=== PATIENT | female | born 1980 | race Two or more races ===

== ENCOUNTER 2016-10-25 20:49 | Inpatient (IN) | payer BC, OTHER ==
[2016-10-25 21:48] VITALS: BMI 27.6
[2016-10-25] MEDS: Lactated Ringer's 1,000 ML IV SCH ×2 (22:15→23:15)
[2016-10-25 22:31] LABS: BASO % 0.3 % (0.0-2.0); EOS % 0.2 % (0.0-4.0); HEMOGLOBIN 13.2 g/dL (12.0-16.0); LYMPH # 2.3 K/uL (1.0-4.3); LYMPH % 14.2 % (20.0-40.0); MEAN CELL VOLUME 90.3 fl (81.0-99.0); MEAN CORPUSCULAR HEMOGLOBIN 29.8 pg (27.0-31.0); MEAN PLATELET VOLUME 8.8 fl (7.2-11.7); MONO # 1.4 K/uL (0.0-0.8); MONO % 8.9 % (0.0-10.0); NEUT # 12.4 K/uL (1.8-7.0); NEUT % 76.4 % (50.0-75.0); RBC 4.43 Mil/uL (3.80-5.20); WHITE BLOOD COUNT 16.3 K/uL (4.8-10.8)
[2016-10-25] MEDS ORDERED: Fentanyl/Bupivacaine HCl 250 ML EPI ONE (22:38)
[2016-10-26] MEDS ORDERED: Lactated Ringer's 1,000 ML IV SCH (00:15)
[2016-10-26] MEDS ORDERED: Lidocaine 1% Inj (20ml) ONE (01:51)
[2016-10-26] MEDS ORDERED: Oxytocin 20 units in LR 2,000 ML IV ONE (01:52)
--- NOTE | 2016-10-26 04:50 | OBADHP ---
Datetime: 10/26/2016 04:45 Pelvic Type - PN: Adequate Extremities - PN: Normal Abdomen - PN: Normal Back - PN: Normal Breast - PN: Normal Lungs - PN: Normal Heart - PN: Normal Thyroid - PN: Normal Neurologic - PN: Normal HEENT - PN: Normal General - PN: Normal Presentation-Admit: Vertex FHR - Baseline A Provider: 140 Contraction Comments Provider: irregular Gestation - Est Wks by US: 39.3 Pool Provider: Positive Vital Signs Provider: Reviewed IP Chief Complaint: Uterine contractions NICHD Variability Prov Fetus A: Moderate 6-25bpm NICHD Accel Fetus A IP Provider: 10X10 NICHD Decel Fetus A IP Provider: None Dilatation, Provider: 3-4 Effacement, Provider: 80% Station, Provider: -1 Genitourinary Exam: Normal DTRs - PN: Normal EGA AdmitDate IP: 39.3 IP Adm Impression: Term, intrauterine IP Admit Plan: Admit to unit; Initiate labor protocol
--- NOTE | 2016-10-26 04:53 | OBDS ---
DELIVERY PERSONNEL Delivery Doctor: Joyce Damian MD Supervisor Byproducts: Kristy Gan RN Anesthesiologist: Melanie White MD MATERNAL INFORMATION Delivery Anesthesia: Epidural Medications in Delivery: Oxytocin 20 units in 1000 mL Placenta Cultured: No Maternal Complications: None Provider Comments: delivery oflive baby boy 9/9 with third degree laceration and repair LABOR SUMMARY EDC: 10/30/2016 00:00 No. Babies in Womb: 1 Attempted: No Labor Anesthesia: Epidural LABOR INFORMATION Reason for Induction: Not Applicable Onset of Labor: 10/25/2016 22:45 Complete Dilatation: 10/26/2016 00:20 Oxytocin: N/A Group B Beta Strep: Negative Steroids Given: None Reason Steroids Not Administered: Not Applicable MEMBRANES Membranes Rupture Method: Spontaneous Rupture of Membranes: 10/25/2016 20:15 Length of Rupture (hrs): 7.68 Amniotic Fluid Color: Clear Amniotic Fluid Amount: Moderate Amniotic Fluid Odor: Normal STAGES OF LABOR Stage 1 hrs: 1 Stage 1 min: 35 Stage 2 hrs: 3 Stage 2 min: 36 Stage 3 hrs: 0 Stage 3 min: 4 Total Time in Labor hrs: 5 Total Time in Labor min: 15 VAGINAL DELIVERY Laceration Extension: Third Degree Laceration Type: Perineal Laceration Repair: Yes Laceration Repair Note: repair of third degree laceration with repair with 2-0 chromic Initial Vag Sponge Count: 5 Final Vag Sponge Count: 5 Initial Vag Sharps Count: 4 Final Vag Sharps Count: 4 Sponge Count Correct: Yes Sharps Count Correct: Yes BABY A INFORMATION Delivery Date/Time: 10/26/2016 03:56 Method of Delivery: Vaginal Born in Route : No : N/A Forceps: N/A Vacuum Extraction: N/A Shoulder Dystocia : No SHOULDER DYSTOCIA BABY A Infant Delivery Date/Time: 10/26/2016 03:56 PRESENTATION/POSITION BABY A Presentation: Cephalic Cephalic Presentation: Vertex PLACENTA INFORMATION BABY A Placenta Delivery Time : 10/26/2016 04:00 Placenta Method of Delivery: Spontaneous Placenta Status: Delivered SCORES BABY A Heart Rate 1 min: >100 bpm Resp Effort 1 min: Good Cry Reflex Irritability 1 min: Cough or Sneeze or Pulls Away Muscle Tone 1 min: Active Motion Color 1 min: Body [place], Extremities Blue SCORE 1 MIN: 9 Heart Rate 5 min: >100 bpm Resp Effort 5 min: Good Cry Reflex Irritability 5 min: Cough or Sneeze or Pulls Away Muscle Tone 5 min: Active Motion Color 5 min: Body [place], Extremities Blue SCORE 5 MIN: 9 INFORMATION BABY A Gestational Age at Delivery: 39.3 Gestational Status: Term Infant Outcome : Liveborn Infant Condition : Stable Infant Sex: Male IDENTIFICATION/MEDS BABY A ID Band Number: [id number] ID Band Location: Left Leg; Left Arm WEIGHT/LENGTH BABY A Infant Birthweight (gms): 3760 Infant Weight (lb): 8 Weight (oz): 5 CORD INFORMATION BABY A No. Cord Vessels: 3 Nuchal Cord : N/A Cord Blood Taken: Yes Infant Suction: Mouth; Nose
[2016-10-26] MEDS ORDERED: Oxycodone/Acetaminophen 5/325 mg Tab PO PRN ×3 (04:55→08:02)
[2016-10-26 07:01] VITALS: BP 131/68; PULSE 97; TEMP 98.1
[2016-10-26] MEDS ORDERED: Benzocaine/Menthol SPRAY TOP PRN (07:26)
[2016-10-26] MEDS: Benzocaine/Menthol SPRAY TOP PRN ×2 (08:34→20:18)
[2016-10-27] MEDS: Benzocaine/Menthol SPRAY TOP PRN (02:29)
[2016-10-27 06:28] LABS: HEMOGLOBIN 10.8 g/dL (12.0-16.0); MEAN CELL VOLUME 90.2 fl (81.0-99.0); MEAN CORPUSCULAR HEMOGLOBIN 30.7 pg (27.0-31.0); RBC 3.53 Mil/uL (3.80-5.20)
--- NOTE | 2016-10-27 16:41 | OBPPN ---
Datetime: 10/27/2016 16:36 PP Pain Prov: Within normal limits PP Nausea Prov: Denies PP Flatus Prov: Yes PP BM Prov: No PP Breasts Prov: Normal PP Heart Prov: Normal PP Lungs Prov: Normal PP Abdomen/Uterus Prov: Normal PP Lochia Prov: Normal PP Vulva/Perineum Prov: Normal PP CVA Tenderness Prov: Normal PP Extremities Prov: Normal PP Progress Prov: Normal PP Impression Prov: Normal progression PP Plan Prov: Continue present management PP Progress Note Prov: stable ppd1 no complaints continue present care IP PP Procedures: None Vital Signs Provider PP: Reviewed; Within Normal Limits
[2016-10-28] MEDS: Benzocaine/Menthol SPRAY TOP PRN (00:35)
--- NOTE | 2016-10-28 11:49 | OBPPN ---
Datetime: 10/28/2016 11:45 PP Pain Prov: Within normal limits PP Nausea Prov: Denies PP Flatus Prov: Yes PP BM Prov: Yes PP Breasts Prov: Normal PP Heart Prov: Normal PP Lungs Prov: Normal PP Abdomen/Uterus Prov: Normal PP Lochia Prov: Normal PP Vulva/Perineum Prov: Normal PP CVA Tenderness Prov: Normal PP Extremities Prov: Normal PP Progress Prov: Normal PP Impression Prov: Normal progression PP Plan Prov: Continue present management PP Progress Note Prov: stable ppd2 dc home today IP PP Procedures: None Vital Signs Provider PP: Reviewed; Within Normal Limits
--- NOTE | 2016-10-28 11:52 | OBDCSUM ---
Datetime: 10/28/2016 11:47 Discharged to, Provider: Home Follow up at, Provider: Disch Instr Activity: May be up to bathroom; May be up for meals; May Shower Disch Instr Diet: Regular Discharge Instructions, Provider: Routine instructions given Discharge Diagnosis, Provider: Term Delivered Discharge Time: 10/28/2016 11:48 Follow up in weeks, Provider: 5-6 weeks Disch Referrals: None Disch Activity Restrictions: No exercising; No lifting; No driving; Minimize walking; Minimize stair -climbing; No sexual activity; Nothing in vagina - [place], tampons, douche Contraception after Delivery: Undecided
== END 2016-10-28 14:50 | disposition home or self-care (01) | DRG 775 ==
LOC: H.EROB2 20:49 → H.L&D 21:49 → H.OB/GYN 10-26 16:08
PROVIDERS: ADMIT Specialist; ATTEND Specialist
PROC: 4A1HXCZ Monitoring of Products of Conception, Cardiac Rate, External Approach (ICD-10-PCS; 2016-10-25)
PROC: 10E0XZZ Delivery of Products of Conception, External Approach (ICD-10-PCS; principal; 2016-10-26)
PROC: 0DQR0ZZ Repair Anal Sphincter, Open Approach (ICD-10-PCS; 2016-10-26)
DX: O70.20 Third degree perineal laceration during delivery, unspecified (principal); O09.523 Supervision of elderly multigravida, third trimester; Z3A.39 39 weeks gestation of pregnancy; Z37.0 Single live birth